=== PATIENT | male | born 2005 | race African-American/Black ===

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

== ENCOUNTER 2024-02-05 07:01 | Emergency (ER) | payer OTHER, SELFPAY ==
[2024-02-05] MEDS ORDERED: HYDROcodone/Acetaminophen 5/325 mg Tablet ONE (07:28)
[2024-02-05] MEDS ORDERED: AMOXicillin 250 MG CAP ONE (07:28)
== END 2024-02-05 07:36 | disposition home or self-care (01) ==
LOC: NAV ERS 07:01
DX: H66.91 Otitis media, unspecified, right ear (principal); J06.9 Acute upper respiratory infection, unspecified; B97.89 Other viral agents as the cause of diseases classified elsewhere
CPT/HCPCS: 99283

== ENCOUNTER 2024-03-09 19:58 | Emergency (ER) | payer SELFPAY ==
[2024-03-09] MEDS ORDERED: Ondansetron ODT 4 MG TAB ONE (20:18)
[2024-03-09] MEDS ORDERED: Dicyclomine 20 MG TAB ONE (20:18)
== END 2024-03-09 20:35 | disposition home or self-care (01) ==
LOC: NAV ERS 19:58
DX: A08.4 Viral intestinal infection, unspecified (principal)
CPT/HCPCS: 99283; Q0162

== ENCOUNTER 2024-11-28 19:40 | Emergency (ER) | payer SELFPAY ==
[2024-11-28] MEDS ORDERED: Ibuprofen 200 MG TAB ONE ×2 (19:47→19:58)
[2024-11-28] MEDS ORDERED: Tetracaine 0.5% PF 4 ML BOT ONE (19:47)
[2024-11-28] MEDS ORDERED: Fluorescein Opthalmic Strip ONE (19:47)
== END 2024-11-28 20:14 | disposition home or self-care (01) ==
LOC: NAV ERS 19:40
DX: H57.11 Ocular pain, right eye (principal); Z59.71 Insufficient health insurance coverage
CPT/HCPCS: 99283

== ENCOUNTER 2024-11-30 18:53 | Emergency (ER) | payer SELFPAY | END 2024-11-30 19:37 | disposition home or self-care (01) | LOC: NAV ERS 18:53 | DX: H10.13 Acute atopic conjunctivitis, bilateral (principal) | CPT/HCPCS: 99283 ==